=== PATIENT | male | born 1970 | race Caucasian/White ===

== ENCOUNTER 2019-01-16 07:21 | Outpatient (CLI) | payer OTHER ==
--- NOTE | 2019-01-16 08:10 | ULT ---
LEFT LOWER EXTREMITY VENOUS DUPLEX EXAM: Date: 01/16/19 HISTORY: Left leg swelling and pain. FINDINGS: Real-time color Doppler evaluation of the left lower extremity was performed from groin to calf. This includes evaluation of the common femoral, superficial and profunda femoral, saphenous, popliteal, a nd trifurcation veins. This shows patent deep venous system. There is normal compressibility and augm entation. There is no evidence of deep venous thrombosis. IMPRESSION: No evidence of deep venous thrombosis of the left lower extremity. POS: EVARISTO
== END 2019-01-16 07:22 | disposition home or self-care (01) ==
LOC: ULT 07:21
PROVIDERS: ATTEND Family Medicine
DX: R60.9 Edema, unspecified (principal)

== ENCOUNTER 2019-01-16 13:02 | Outpatient (CLI) | payer OTHER ==
--- NOTE | 2019-01-16 15:23 | MRI ---
MRI CERVICAL SPINE WITHOUT CONTRAST: INDICATION: Neck pain and left shoulder pain. COMPARISON: None. FINDINGS: Visualized aspects of the posterior fossa appear within normal limits. Bone marrow signal intensity appears within normal limits. The visualized prevertebral soft tissues appear within normal limits. At C2-C3, there is moderate left facet joint degenerative change causing mild left neural foraminal n arrowing. At C3-4, there is uncovertebral hypertrophy and facet joint degenerative change inducing moderate chi ateral neural foraminal narrowing. There is a mild broad-based disk bulge causing mild central canal narrowing. There is no cord contact demonstrated. At C4-5, there is a broad-based disk bulge with a superimposed right paracentral protrusion causing m oderate narrowing of the central canal with mild ventral effacement of the right ventral lateral aspe ct of the spinal cord. There is no cord signal abnormality. There is uncovertebral hypertrophy and facet joint degenerative change inducing severe right and moderate to severe left neural foraminal na rrowing. At C5-6, there is a broad-based bulge with a superimposed right paracentral protrusion causing mild t o moderate ventral effacement of the spinal cord without cord signal abnormality. There is uncoverte bral hypertrophy and facet joint degenerative change inducing moderate to severe left and moderate ri ght neural foraminal narrowing. At C6-7, there is a broad-based bulge with a superimposed left paracentral disk extrusion. The extru renetta extends slightly cephalad and measures 9 x 6 mm in its greatest craniocaudad mediolateral dimens ions respectively. This is causing moderate narrowing with mild ventral lateral effacement of the le ft aspect of the spinal cord without cord signal abnormality. There is an additional 8 mm left marina inal disk protrusion at C6-7 inducing severe narrowing of the left neural foramina. There is uncover tebral hypertrophy on the right inducing moderate to severe right neural foraminal narrowing. At C7-T1, there is no appreciable central canal or neural foraminal narrowing. IMPRESSION: 1. Severe multilevel spondylosis with multilevel central canal and neural foraminal narrowing spanni ng C3-4 through C6-7. 2. There is a prominent left paracentral cephalad-extending disk extrusion at C6-7 causing moderate central canal narrowing and ventral lateral effacement of the spinal cord. There is also left forami nal protrusion at C6-7 causing severe left neural foraminal narrowing. 3. Right paracentral protrusion of the C4-5 and C5-6 inducing effacement of the spinal cord without cord signal abnormality. 4. Prominent neural foraminal narrowing from C3-4 through C6-7 as above. POS: BH
--- NOTE | 2019-01-16 16:36 | MRI ---
MRI LUMBAR SPINE WITHOUT CONTRAST: Date: 01/16/19 HISTORY: Left-sided sciatica. Low back and right leg pain. Numbness from hip to knee. COMPARISON: None. TECHNIQUE: MRI lumbar spine is performed without intravenous Gadolinium administration. Multisequential, multipl mckinley imaging is performed. FINDINGS: Appropriate T1 marrow signal intensity of the lumbar vertebra. Lumbar spine vertebral body height is maintained. No fracture. No significant STIR hyperintensity to suggest vertebral body edema or ligame ntous injury. Appropriate signal intensity of the paraspinal muscles. Appropriate signal intensity of the visualize d solid organs. Conus medullaris terminates at the upper aspect of L1. T11-T12: There is a left paracentral disc bulge with moderate central canal stenosis. Neural foramin a are moderately narrowed. T12-L1: Adequate disc hydration. No significant central canal stenosis. Neural foramina are patent. L1-L2: Desiccation with mild loss of disc space height. There is a left paracentral T2 and STIR hype rintensity suggesting a small annular fissure with associated minimal disc protrusion. Mild central c anal stenosis. Mild bilateral foraminal narrowing. L2-L3: Mild desiccation with mild loss of disc space height. In the left extraforaminal component of the disc, there is a disc protrusion. Contiguous with the disc protrusion is an area of T2 hyperinte nsity that is directed in the superior and medial fashion. There is an extradural T1 hypointense, T2 hyperintense focus that enters the left neural foramen and terminates in the left subarticular zone. This lesion measures 1.4 x 0.9 cm. An extruded disc fragment is suspected. There is resultant moderat e central canal stenosis. There is presumed mass effect and obscuration of the traversing left L3 and possibly L4 nerve root. Right neural foramen is patent. Moderate to severe left foraminal narrowing. L3-L4: There is mild disc desiccation. There is a left extraforaminal disc protrusion with abnormal T2 hyperintense signal. This protruded disc abuts the partially obscures the extraforaminal left L3 n erve root. Contiguous to this extruded disc, in the superomedial fashion, is a T1 hypointense, T2 hyp erintense focus that is extradural in location. This lesion extends into the left neural foramen and terminates in the left subarticular zone. This lesion measures 1.2 x 0.7 cm. There is mass effect and presumed obscuration of the traversing left L4 and possibly L5 nerve root. Right neural foramen is m ildly narrowed. Moderate to severe left foraminal narrowing due to disc material. L4-L5: Adequate disc hydration. Generalized disc bulge, ligamentum flavum thickening, and facet hype rtrophy result in mild central canal stenosis. Moderate right and mild to moderate left foraminal carrington rowing. L5-S1: There is a central disc protrusion with associated T2 and STIR hyperintense lesion suggesting annular fissure. Mild central canal stenosis. Mild bilateral foraminal narrowing. The overall AP diameter of the central spinal canal is narrowed secondary to congenitally foreshorten ed pedicles. IMPRESSION: 1. Degenerative disc disease at T11-T12. 2. Presumed left extraforaminal disc protrusion with associated superior and medial disc extrusion. The disc material enters the left neural foramen at L2-L3 and terminates in the left subarticular zon e. A second disc protrusion at L3-L4 abuts the extraforaminal left L3 nerve root. The extruded disc e xtends medially into the left neural foramen and terminates in the left subarticular zone. There is s ignificant stenosis as described above. Though disc material is favored, postcontrast imaging is chema mmended to exclude a possible mass lesion that is extradural in location. 3. Annular fissure at L1-L2 and L5-S1 as described above. CODE T. POS: EVARISTO
== END 2019-01-16 13:03 | disposition home or self-care (01) ==
LOC: TBSIIMAG 13:02
PROVIDERS: ATTEND Family Medicine
DX: M47.22 Other spondylosis with radiculopathy, cervical region (principal); M51.34 Other intervertebral disc degeneration, thoracic region; M51.16 Intervertebral disc disorders with radiculopathy, lumbar region; M48.061 Spinal stenosis, lumbar region without neurogenic claudication; M48.02 Spinal stenosis, cervical region; M50.123 Cervical disc disorder at C6-C7 level with radiculopathy
CPT/HCPCS: 72141; 72148

== ENCOUNTER 2019-02-10 14:28 | Outpatient (CLI) | payer OTHER ==
[2019-02-10] MEDS ORDERED: Gadobenate Dimeglumine 529 MG/1 ML (20ML VIAL) ONE (15:00)
--- NOTE | 2019-02-10 17:55 | MRI ---
MRI LUMBAR SPINE WITH CONTRAST: Date: 02/10/19 Multiplanar, multisequential images obtained after administering IV MultiHance. INDICATION: Follow-up MRI lumbar spine of 01/16/19 which revealed extruded disc on the left at L2-3 and L3-4 with extension into the foramina and subarticular zones at both of these levels. Today's exam again reveals these disc extrusions on the left. There is peripheral enhancement surroun ding these disc extrusions. Findings are consistent with disc extrusion. Findings do not indicate ext radural mass lesion. IMPRESSION: Disc extrusion with foraminal extension and inferior migration into the subarticular zone at L2-3 and L3-4. Postcontrast exam shows peripheral enhancement surrounding the disc fragments. POS: EVARISTO
== END 2019-02-10 14:29 | disposition home or self-care (01) ==
LOC: TBSIIMAG 14:28
PROVIDERS: ATTEND Neurological Surgery
DX: D49.2 Neoplasm of unspecified behavior of bone, soft tissue, and skin (principal); M51.26 Other intervertebral disc displacement, lumbar region
CPT/HCPCS: 72149; A9577

== ENCOUNTER 2021-12-21 10:23 | Outpatient (CLI) | payer OTHER | END 2021-12-21 10:24 | disposition home or self-care (01) | LOC: TBSIIMAG 10:23 | PROVIDERS: ATTEND Neurological Surgery | DX: M48.062 Spinal stenosis, lumbar region with neurogenic claudication (principal); M48.02 Spinal stenosis, cervical region; M48.04 Spinal stenosis, thoracic region; M47.812 Spondylosis without myelopathy or radiculopathy, cervical region; M47.814 Spondylosis without myelopathy or radiculopathy, thoracic region; M51.34 Other intervertebral disc degeneration, thoracic region; M51.84 Other intervertebral disc disorders, thoracic region; M51.24 Other intervertebral disc displacement, thoracic region; M25.78 Osteophyte, vertebrae | CPT/HCPCS: 72146 ==